=== PATIENT | male | born 2000 | race Caucasian/White ===

== ENCOUNTER 2022-02-09 18:48 | Emergency (ER) | payer OTHER ==
[~2022-02-09] VITALS: Ht 170.2 cm; Wt 75.7 kg
[2022-02-10] MEDS ORDERED: LIDOCAINE 1% MDV 20ML VIAL SC ONE (07:25)
[2022-02-10] MEDS ORDERED: CEPH500C PO (08:27)
[2022-02-10 08:55] VITALS: BP 129/86
== END 2022-02-10 09:10 | disposition home or self-care (01) ==
LOC: EDSEX 18:48 → M ED 18:48
DX: S01.112A Laceration without foreign body of left eyelid and periocular area, initial encounter (principal); S00.12XA Contusion of left eyelid and periocular area, initial encounter; W22.8XXA Striking against or struck by other objects, initial encounter; Y92.018 Other place in single-family (private) house as the place of occurrence of the external cause